=== PATIENT | female | born 1955 | race African-American/Black ===

== ENCOUNTER 2016-08-29 05:35 | Emergency (ER) | payer OTHER ==
[2016-08-29 06:35] VITALS: BP 136/90
== END 2016-08-29 07:20 | disposition home or self-care (01) ==
LOC: ED 05:35
DX: L50.9 Urticaria, unspecified (principal); E78.00 Pure hypercholesterolemia, unspecified; F41.9 Anxiety disorder, unspecified; I10 Essential (primary) hypertension; Z87.442 Personal history of urinary calculi